=== PATIENT | female | born 1975 | race Two or more races ===

== ENCOUNTER 2023-12-22 11:19 | Inpatient (IN) | payer OTHER ==
[2023-12-22 12:26] VITALS: BMI 16.4
[2023-12-22] MEDS ORDERED: NALOXONE HCL (KLOXXADO) 8 MG SPRAY NS PRN (13:30)
[2023-12-22] MEDS ORDERED: POLYETHYLENE GLYCOL (HEALTHYLAX) 3350 17 GM PACKET PO PRN (13:30)
[2023-12-22] MEDS ORDERED: ACETAMINOPHEN 325 MG TABLET (FP) PO PRN (13:30)
[2023-12-22] MEDS ORDERED: LOPERAMIDE HCL 2 MG CAPSULE PO PRN (13:30)
[2023-12-22] MEDS ORDERED: IBUPROFEN 400 MG TABLET (FP) PO PRN (13:30)
[2023-12-22] MEDS ORDERED: IBUPROFEN 600 MG TABLET (FP) PO PRN (13:30)
[2023-12-22] MEDS ORDERED: MAGNESIUM HYDROX 2400MG/30ML ORAL SUSPENSION 30 ML CUP PO PRN (13:30)
[2023-12-22] MEDS ORDERED: MAG HYDROX/AL HYDROX/SIMETH 30 ML UNIT-DOSE CUP PO PRN (13:30)
[2023-12-22] MEDS ORDERED: guaiFENesin 600 MG TABLET.ER (FP) PO PRN (13:30)
[2023-12-22] MEDS ORDERED: ONDANSETRON *ODT* 4 MG TABLET SL PRN (13:30)
[2023-12-22] MEDS ORDERED: BENZONATATE 200 MG CAPSULE PO PRN (13:30)
[2023-12-22] MEDS ORDERED: BISMUTH SUBSALICYLATE 524 MG/30 ML PO PRN (13:30)
[2023-12-22] MEDS ORDERED: NALOXONE HCL 0.4 MG/ML VIAL IM PRN (13:30)
[2023-12-22] MEDS ORDERED: BENZOCAINE/MENTHOL (CHLORASEPTIC ) LOZENGE MM PRN (13:30)
[2023-12-22] MEDS ORDERED: LORazepam 1 MG TABLET PO PRN (13:36)
[2023-12-22] MEDS ORDERED: LORazepam 1 MG TABLET ONE (14:41)
[2023-12-22] MEDS: LORazepam 1 MG TABLET PO ONE (14:44)
[2023-12-22] MEDS: LORazepam 1 MG TABLET PO SCH (17:18)
[2023-12-22] MEDS: THIAMINE HCL 100 MG TABLET (FP) PO SCH (22:21)
[2023-12-22] MEDS: MELATONIN 5 MG TABLETS PO SCH (22:21)
[2023-12-23] MEDS: PRENATAL VITAMINS W/ FOLIC ACID TABLET (FP) PO SCH (10:18)
[2023-12-23 11:42] LABS: HEMATOCRIT 37.9 % (32.4-45.2); HEMOGLOBIN 12.7 GM/dL (10.7-15.3); MCH 32.1 pg (25.7-33.7); MCHC 33.6 g/dl (32.0-36.0); MEAN CELL VOLUME 95.4 fl (80-96); PLATELET COUNT 94 10^3/uL (134-434); RBC 3.97 M/mm3 (3.60-5.2); RDW 14.5 % (11.6-15.6); WHITE BLOOD COUNT 4.8 K/mm3 (4.0-10.0)
[2023-12-23 11:45] LABS: CHLORIDE 100 mmol/L (98-107); POTASSIUM 3.4 mmol/L (3.5-5.1); SODIUM 138 mmol/L (136-145)
[2023-12-23 12:09] LABS: ALBUMIN 3.9 g/dl (3.4-5.0); ANION GAP 6 mmol/L (4-13); CALCIUM 9.2 mg/dL (8.5-10.1); CO2 32 mmol/L (21-32); GLUCOSE,RANDOM 100 mg/dL (74-106)
[2023-12-23 12:10] LABS: BLOOD UREA NITROGEN 12.8 mg/dL (7-18)
[2023-12-23 12:11] LABS: BILIRUBIN,TOTAL 1.6 mg/dL (0.2-1)
[2023-12-23 12:12] LABS: ALK PHOS 139 U/L (45-117); CREATININE 0.6 mg/dL (0.55-1.3); SGOT/AST 94 U/L (15-37); SGPT/ALT 34 U/L (13-61)
[2023-12-23 12:46] LABS: HIV INTERPRETATION NEGATIVE (NEGATIVE)
[2023-12-23] MEDS: SUVOREXANT 10 MG TABLET PO PRN (22:05)
[2023-12-24] MEDS: LORazepam 1 MG TABLET PO SCH (05:32)
[2023-12-24] MEDS: POTASSIUM CHLORIDE ORAL LIQUID 20 MEQ/15 ML PO ONE (09:14)
[2023-12-24 14:58] LABS: POTASSIUM 3.6 mmol/L (3.5-5.1)
[2023-12-24 15:01] LABS: CALCIUM 9.4 mg/dL (8.5-10.1)
[2023-12-24 15:02] LABS: BLOOD UREA NITROGEN 15.5 mg/dL (7-18)
[2023-12-24 15:05] LABS: CREATININE 0.5 mg/dL (0.55-1.3)
[2023-12-25] MEDS ORDERED: LORazepam 0.5 MG TABLET PO PRN
[2023-12-25] MEDS: LORazepam 0.5 MG TABLET PO SCH (05:46)
[2023-12-26] MEDS: LORazepam 0.5 MG TABLET PO ONE (06:00)
[2023-12-26 06:03] VITALS: RESP 18
[2023-12-26 09:16] VITALS: BP 139/93; PULSE 90; TEMP 98.7
== END 2023-12-26 10:31 | disposition home or self-care (01) | DRG 775 ==
LOC: YASAS 11:19 → Y3N 13:43
PROVIDERS: ADMIT Allergy & Immunology; ATTEND Surgery
PROC: HZ2ZZZZ Detoxification Services for Substance Abuse Treatment (ICD-10-PCS; principal; 2023-12-22)
DX: F10.230 Alcohol dependence with withdrawal, uncomplicated (principal); F12.20 Cannabis dependence, uncomplicated; F10.24 Alcohol dependence with alcohol-induced mood disorder; F41.9 Anxiety disorder, unspecified; K74.60 Unspecified cirrhosis of liver; R45.89 Other symptoms and signs involving emotional state; Z28.310 Unvaccinated for COVID-19; Z28.9 Immunization not carried out for unspecified reason; Z56.0 Unemployment, unspecified
CPT/HCPCS: 36415; 80048; 80053; 80305; 80307; 81025; 85027; 86780; 87389; 93005; 93010

== ENCOUNTER 2024-04-17 14:36 | Inpatient (IN) | payer OTHER ==
[2024-04-17 15:21] VITALS: BMI 16.9
[2024-04-17] MEDS ORDERED: IBUPROFEN 400 MG TABLET (FP) PO PRN (17:12)
[2024-04-17] MEDS ORDERED: IBUPROFEN 600 MG TABLET (FP) PO PRN (17:12)
[2024-04-17] MEDS ORDERED: MAG HYDROX/AL HYDROX/SIMETH 30 ML UNIT-DOSE CUP PO PRN (17:12)
[2024-04-17] MEDS ORDERED: BENZOCAINE/MENTHOL (CHLORASEPTIC ) LOZENGE MM PRN (17:12)
[2024-04-17] MEDS ORDERED: LOPERAMIDE HCL 2 MG CAPSULE PO PRN (17:12)
[2024-04-17] MEDS ORDERED: BENZONATATE 200 MG CAPSULE PO PRN (17:12)
[2024-04-17] MEDS ORDERED: MAGNESIUM HYDROX 2400MG/30ML ORAL SUSPENSION 30 ML CUP PO PRN (17:12)
[2024-04-17] MEDS ORDERED: DICYCLOMINE HCL 10 MG CAPSULE PO PRN (17:12)
[2024-04-17] MEDS ORDERED: POLYETHYLENE GLYCOL (HEALTHYLAX) 3350 17 GM PACKET PO PRN (17:12)
[2024-04-17] MEDS ORDERED: guaiFENesin 600 MG TABLET.ER (FP) PO PRN (17:12)
[2024-04-17] MEDS: LORazepam 1 MG TABLET PO PRN (18:22)
[2024-04-17] MEDS: THIAMINE 100 MG TABLET PO SCH (22:33)
[2024-04-17] MEDS: MELATONIN 5 MG TABLETS PO SCH (22:33)
[2024-04-17] MEDS: LORazepam 2 MG TABLET PO SCH (22:35)
[2024-04-18] MEDS: LORazepam 1 MG TABLET PO SCH (05:55)
[2024-04-18] MEDS: PRENATAL VITAMINS W/ FOLIC ACID TABLET (FP) PO SCH (10:08)
[2024-04-18] MEDS: ACAMPROSATE CALCIUM 333 MG TABLET.DR PO SCH (14:03)
[2024-04-18 18:10] LABS: CHLORIDE 98 mmol/L (98-107); HEMATOCRIT 35.8 % (32.4-45.2); MCHC 33.6 g/dl (32.0-36.0); MEAN CELL VOLUME 95.4 fl (80-96); PLATELET COUNT 95 10^3/uL (134-434); POTASSIUM 3.8 mmol/L (3.5-5.1); RBC 3.76 M/mm3 (3.60-5.2); SODIUM 136 mmol/L (136-145); WHITE BLOOD COUNT 4.9 K/mm3 (4.0-10.0)
[2024-04-18 18:12] LABS: CALCIUM 9.8 mg/dL (8.5-10.1)
[2024-04-18 18:13] LABS: ALBUMIN 4.2 g/dl (3.4-5.0); ANION GAP 8 mmol/L (4-13); BLOOD UREA NITROGEN 10.2 mg/dL (7-18); CO2 30 mmol/L (21-32); GLUCOSE,RANDOM 121 mg/dL (74-106)
[2024-04-18 18:16] LABS: CREATININE 0.7 mg/dL (0.55-1.3); SGOT/AST 107 U/L (15-37); SGPT/ALT 47 U/L (13-61)
[2024-04-18 18:17] LABS: BILIRUBIN,TOTAL 1.7 mg/dL (0.2-1)
[2024-04-18 18:18] LABS: TOT PROT 8.4 g/dl (6.4-8.2)
[2024-04-18 18:19] LABS: ALK PHOS 140 U/L (45-117)
[2024-04-18] MEDS: CARVEDILOL 3.125 MG TABLET (FP) PO SCH (23:00)
[2024-04-19] MEDS: LORazepam 0.5 MG TABLET PO SCH (05:26)
[2024-04-19] MEDS: SPIRONOLACTONE 25 MG TABLET PO SCH (10:35)
[2024-04-20] MEDS ORDERED: LORazepam 0.5 MG TABLET PO PRN
[2024-04-20] MEDS: LORazepam 0.5 MG TABLET PO ONE (05:36)
[2024-04-20] MEDS: LORazepam 0.5 MG TABLET PO SCH (12:47)
[2024-04-20] MEDS: MELATONIN 5 MG TABLETS PO SCH (22:24)
[2024-04-21] MEDS: LORazepam 0.5 MG TABLET PO ONE (05:34)
[2024-04-21] MEDS: LORazepam 1 MG TABLET PO PRN (10:47)
[2024-04-21] MEDS ORDERED: SUVOREXANT 10 MG TABLET PO PRN ×2 (22:00)
[2024-04-21] MEDS ORDERED: SUVOREXANT 5 MG TABLET PO PRN (23:35)
[2024-04-21] MEDS: SUVOREXANT 5 MG TABLET PO PRN (23:43)
[2024-04-22] MEDS: NALTREXONE HCL 50 MG TABLET PO SCH (15:47)
[2024-04-22] MEDS: BISMUTH SUBSALICYLATE 524 MG/30 ML PO PRN (18:19)
[2024-04-23] MEDS ORDERED: LORazepam 0.5 MG TABLET PO PRN
[2024-04-23] MEDS: ONDANSETRON *ODT* 4 MG TABLET SL PRN (09:52)
[2024-04-24 08:41] VITALS: BP 131/91; PULSE 76; RESP 18; TEMP 98.2
== END 2024-04-24 10:08 | disposition home or self-care (01) | DRG 775 ==
LOC: YASAS 14:36 → Y6N 17:20
PROVIDERS: ADMIT Allergy & Immunology; ATTEND Surgery
PROC: HZ2ZZZZ Detoxification Services for Substance Abuse Treatment (ICD-10-PCS; principal; 2024-04-17)
DX: F10.230 Alcohol dependence with withdrawal, uncomplicated (principal); F12.20 Cannabis dependence, uncomplicated; F10.282 Alcohol dependence with alcohol-induced sleep disorder; F41.9 Anxiety disorder, unspecified; F32.A Depression, unspecified; I10 Essential (primary) hypertension; K70.30 Alcoholic cirrhosis of liver without ascites; R74.01 Elevation of levels of liver transaminase levels
CPT/HCPCS: 36415; 80053; 80305; 80307; 81025; 85027; 86780; Q0162